=== PATIENT | female | born 1960 | race Caucasian/White ===

== ENCOUNTER 2017-07-03 11:51 | Emergency (ER) | payer OTHER ==
[~2017-07-03] VITALS: Ht 162.6 cm; Wt 53.9 kg
[~2017-07-03 11:51] MED LIST: NO HOME MEDS
[2017-07-03] MEDS ORDERED: FLEXERIL10 MG PO (15:32)
[2017-07-03] MEDS ORDERED: NAPROSYN500 MG PO (15:32)
[2017-07-03 16:13] VITALS: BP 135/71
== END 2017-07-03 16:13 | disposition home or self-care (01) ==
LOC: EME 11:51
DX: S39.012A Strain of muscle, fascia and tendon of lower back, initial encounter (principal); M62.838 Other muscle spasm; X50.0XXA Overexertion from strenuous movement or load, initial encounter; Y93.F2 Activity, caregiving, lifting; Y99.0 Civilian activity done for income or pay; M85.88 Other specified disorders of bone density and structure, other site; F17.200 Nicotine dependence, unspecified, uncomplicated
CPT/HCPCS: 72070; 72100; 99281; 99284